=== PATIENT | female | born 1940 | race Caucasian/White ===

== ENCOUNTER 2023-09-17 10:07 | Emergency (ER) | payer MEDICARE, OTHER ==
[~2023-09-17] VITALS: Ht 160 cm; Wt 58.1 kg
[2023-09-17] MEDS ORDERED: PANT40TA49 PO (10:18)
[2023-09-17] MEDS ORDERED: PRAV20TA4 PO (10:18)
[2023-09-17] MEDS ORDERED: URSO500T10 PO (10:18)
[2023-09-17] MEDS ORDERED: LEVO100T10 PO (10:18)
[2023-09-17] MEDS ORDERED: CHOL100062 PO (10:18)
[2023-09-17] MEDS ORDERED: ACET-73 PO (10:18)
[2023-09-17 10:56] LABS: BASOPHILS # (AUTO) 0.1 K/UL (0.0-0.2); BASOPHILS % (AUTO) 2.2 % (0.0-2.0); EOSINOPHILS # (AUTO) 0.1 K/uL (0.0-0.7); EOSINOPHILS % (AUTO) 2.8 % (0.0-7.0); HEMATOCRIT 39.3 % (31.2-41.9); HEMOGLOBIN 12.9 g/dL (10.9-14.3); LYMPHOCYTES # (AUTO) 0.8 K/uL (0.8-4.8); LYMPHOCYTES % (AUTO) 21.2 % (20.5-51.5); MEAN CORPUSCULAR HEMOGLOBIN 28.2 uug (24.7-32.8); MEAN CORPUSCULAR HGB CONC 33 g/dL (32.3-35.6); MEAN CORPUSCULAR VOLUME 85.6 fL (75.5-95.3); MONOCYTES # (AUTO) 0.3 K/uL (0.1-1.30); MONOCYTES % (AUTO) 9.3 % (0.0-11.0); NEUTROPHILS # (AUTO) 2.4 K/uL (1.8-8.9); NEUTROPHILS % (AUTO) 64.5 % (38.5-71.5); PLATELET COUNT (AUTO) 122 K/uL (179-408); RED BLOOD CELL COUNT(AUTO) 4.59 MIL/uL (3.63-4.92); RED CELL DISTRIBUTION WIDTH 14.4 % (12.3-17.7); WHITE BLOOD COUNT (AUTO) 3.7 K/uL (3.8-11.8)
[2023-09-17 11:12] LABS: DIFFERENTIAL COMMENT 1
[2023-09-17 11:17] LABS: CALCIUM 8.8 mg/dL (8.5-10.1); CREATININE 0.7 mg/dL (0.6-1.3); POTASSIUM 4.2 mmol/L (3.5-5.1)
[2023-09-17 11:22] LABS: ALBUMIN 3.2 g/dL (3.4-5.0); BILIRUBIN,DIRECT 0.2 mg/dL (0.0-0.2); BILIRUBIN,TOTAL 0.6 mg/dL (0.2-1.0)
[2023-09-17] MEDS ORDERED: ACET1TAB23 PO (12:13)
[2023-09-17] MEDS ORDERED: METR500T PO (12:13)
[2023-09-17] MEDS ORDERED: FLUT16SP16 BNOSTRILS (12:13)
[2023-09-17] MEDS ORDERED: SULF1TAB48 PO (12:13)
[2023-09-17 12:15] VITALS: BP 138/70; TEMP 97; O2SAT 99
== END 2023-09-17 12:30 | disposition home or self-care (01) ==
LOC: ER 10:07
DX: S70.00XA Contusion of unspecified hip, initial encounter (principal); J32.9 Chronic sinusitis, unspecified; Z88.0 Allergy status to penicillin; Z79.899 Other long term (current) drug therapy; X58.XXXA Exposure to other specified factors, initial encounter; Y93.89 Activity, other specified; Y92.89 Other specified places as the place of occurrence of the external cause; Y99.8 Other external cause status
CPT/HCPCS: 36415; 70486; 85025; A4606; A4663

== ENCOUNTER 2024-08-15 11:14 | Emergency (ER) | payer MEDICARE, OTHER ==
[~2024-08-15] VITALS: Ht 162.6 cm; Wt 73.0 kg
[~2024-08-15 11:14] MED LIST: ACET-73 PO; ACET1TAB23 PO; CHOL100062 PO; FLUT16SP16 BNOSTRILS; LEVO100T10 PO; METR500T PO; PANT40TA49 PO; PRAV20TA4 PO; SULF1TAB48 PO; URSO500T10 PO
[2024-08-15] MEDS ORDERED: LIDOCAINE 2%-EPI 1:100,000 20 ML VIAL ONE (11:40)
[2024-08-15] MEDS: TRIAMCINOLONE ACETONIDE 40 MG/1 ML VIAL IJ ONE (11:57)
[2024-08-15] MEDS: LIDOCAINE 2%-EPI 1:100,000 20 ML VIAL IJ ONE (11:57)
[2024-08-15 15:50] VITALS: BP 111/99; O2SAT 98
== END 2024-08-15 15:50 | disposition home or self-care (01) ==
LOC: ER 11:17
DX: M70.61 Trochanteric bursitis, right hip (principal); R25.2 Cramp and spasm; E03.9 Hypothyroidism, unspecified; K21.9 Gastro-esophageal reflux disease without esophagitis; E78.5 Hyperlipidemia, unspecified; Z79.890 Hormone replacement therapy; Z79.899 Other long term (current) drug therapy; Z88.0 Allergy status to penicillin; Z60.2 Problems related to living alone
CPT/HCPCS: 72170; 20610; 99283; J3301; A4606; A4663